=== PATIENT | female | born 1975 ===

== ENCOUNTER → 2023-10-08 07:47 | Outpatient (BNVA) | payer BC, SELFPAY | PROVIDERS: PCP Internal Medicine; Visit Provider Physician Assistant Surgical ==

== ENCOUNTER 2023-10-30 09:05 | Outpatient (AMB) | payer BC, SELFPAY ==
--- NOTE | 2023-10-30 16:23 | A.OFFVIS_ITS ---
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 BMI 43.2 HPI Details Start time: 1.52pm, End time: 2.52pm ?I spent 50 minutes speaking with the patient on the phone plus an additional 10 minutes reviewing and updating records for a total of 60 minutes HPI Comments History of Present Illness Details Previous weight loss efforts: Saxenda: 15lbs Wakes up: 6am, Sleeps: 8pm Breakfast: 9am (scrambled eggs, donut) Lunch: 12pm (sandwich) Dinner: 6pm (chicken, rice, beans, pasta) Snacks: none Exercise: Gym membership Fluids: Coffee (1cup/day with cream), tea: no, soda: regular Coke, juice: crystal light, ETOH: none PFSH Medical History (Updated 10/30/23 @ 16:24 by Elio Llamas MD) DJD (degenerative joint disease) Anxiety Depression Hypertension Morbid obesity Surgical History (Updated 10/08/23 @ 08:23 by Miryam Gomez CMA) Hx of colonoscopy Hx of wisdom tooth extraction Family History (Updated 10/08/23 @ 08:27 by Miryam Gomez CMA) Mother Hypertension Thyroid condition Father Acute leukemia Hypertension Diabetes Heart valve problem MDS (myelodysplastic syndrome) Son Depression Anxiety Social History (Updated 10/08/23 @ 08:23 by Miryam Gomez CMA) Alcohol intake: never Patient Tobacco Use Status: Never used Tobacco Assessment & Plan Assessment & Plan (1) Morbid obesity: Code(s): E66.01 - Morbid (severe) obesity due to excess calories Plan: 1.? Plan for lap sleeve gastrectomy. If diaphragmatic or ventral hernias are present at time of surgery, these will be repaired laparoscopically as well. Risks and complications were discussed in detail including possible conversion to an open procedure, anastomotic leak, bleeding requiring transfusion, small bowel obstruction, , DVT and pulmonary embolism, cardiac, or pulmonary complications, as intermodal dispatcher complications such as anastomotic ulcer, insufficient weight loss and vitamin deficiencies. I emphasized the importance of close follow-up, adherence to instructions and good communication. 2. Nutritional counseling. Start with one Isopure INFUSIONS protein (buy at [employer]) shakes (HALF scoop in 8oz water) at 7am-9am, 2 protein bar (Zone Perfect protein bars, buy at [employer]) at 10am-12pm and 1pm-3pm, dinner at 5pm (8 forks of protein and 8 forks of salad/vegetables) and one more Isopure IN[employer]USIONS protein shake (HALF scoop in 8oz water) after dinner at 6pm-8pm. So you do 2 protein shakes, 2 protein bars and one meal per day. Meal to include lean meat (beef, fish, pork, turkey, chicken), or persian yogurt, or egg whites, or beans with a salad with olive oil and fruits (berries, pears, apples, kiwi). Avoid salt, breads, potatoes, rice, pasta, desserts. 3. Each shake would be drunk slowly, like coffee in a period of 2 hours. 4. Cut each bar in 4 pieces and eat each piece in 30min ?to make each bar last 2 hours. 5. I emphasized the importance of measuring accurately the food portion and measure it when serving the food in plate 6. The meal portions include 8 full-size forks of meat and 8 full-size forks of salad. You always eat the meat portion but you can replace up to 4 forks for salad/vegetables with rice, potatoes or pasta, or a fruit ?if you like. The less you do it the better weight loss will be. 7. One full-size fork is what it can be scooped on the fork without falling aside and not what can be bit with the fork. Use regular forks like those you find in a typical restaurant. 8.? Please send me weight measurements as soon as possible and then once a week. Always include your diet and exercise plan. 9. Start treadmill with an incline of 2.0 and speed of 3.0. Increase incline by 1 every 3 min to a max incline of 8.0, stay 3min at 8.0 and then return to 2.0 and repeat same steps until calorie goal is met. Goal is to burn 2000 calories per week on exercise, which means either 300 calories daily, or 400 calories 5 days per week, or 500 calories 4 days per week, or 650 calories 3 days per week. Start also weight exercises with 20-30lbs for chest/shoulders/abdomen and 40- 50lbs for thighs doing 2 sets of 15 repetitions each. 10. The best choice would be to purchase a stationary bike, elliptical or treadmill at home that can track calories. Let me know if you do so I can give you an exercise plan. 11.?It is important of avoiding and for at least 18 months postoperatively and has been discussed at the infosession. 12. Goal is to lose at least 1.5-2lbs per week 13. Goal to lose 10% of your weight before surgery, which is about 24lbs. Ultimate weight goal: 220lbs before surgery 14. Please follow the diet plan exactly without any change. If you don't like something about the plan or you feel hungry you need to communicate with me so I can help you revise the plan. You should not change the plan yourself. Orders: Orders Hemoglobin A1c Today E66.01 - Morbid (severe) obesity due to excess calories, I10 - Essential (primary) hypertension H Pylori Breath Test Today E66.01 - Morbid (severe) obesity due to excess calories, I10 - Essential (primary) hypertension Lipid Panel Today E66.01 - Morbid (severe) obesity due to excess calories, I10 - Essential (primary) hypertension IRON PROFILE Today E66.01 - Morbid (severe) obesity due to excess calories, I10 - Essential (primary) hypertension Vitamin B12 and Folate Today E66.01 - Morbid (severe) obesity due to excess calories, I10 - Essential (primary) hypertension Zinc Today E66.01 - Morbid (severe) obesity due to excess calories, I10 - Essential (primary) hypertension C Reactive Protein Today E66.01 - Morbid (severe) obesity due to excess calories, I10 - Essential (primary) hypertension Vitamin A Today E66.01 - Morbid (severe) obesity due to excess calories, I10 - Essential (primary) hypertension TSH reflex Free T4 Today E66.01 - Morbid (severe) obesity due to excess calories, I10 - Essential (primary) hypertension XR chest 2V Today E66.01 - Morbid (severe) obesity due to excess calories, I10 - Essential (primary) hypertension Insulin Today E66.01 - Morbid (severe) obesity due to excess calories, I10 - Essential (primary) hypertension Complete Blood Count Auto Diff Today E66.01 - Morbid (severe) obesity due to excess calories, I10 - Essential (primary) hypertension Comprehensive Met. Panel Today E66.01 - Morbid (severe) obesity due to excess calories, I10 - Essential (primary) hypertension Vitamin B1 Today E66.01 - Morbid (severe) obesity due to excess calories, I10 - Essential (primary) hypertension Ferritin Today E66.01 - Morbid (severe) obesity due to excess calories, I10 - Essential (primary) hypertension Vitamin D 25-OH Total Today E66.01 - Morbid (severe) obesity due to excess calories, I10 - Essential (primary) hypertension US abdomen comp w elastography Today E66.01 - Morbid (severe) obesity due to excess calories, I10 - Essential (primary) hypertension ECG 12 lead EKG Today E66.01 - Morbid (severe) obesity due to excess calories, I10 - Essential (primary) hypertension FL upper GI w air Today E66.01 - Morbid (severe) obesity due to excess calories, I10 - Essential (primary) hypertension Referrals Behavioral Health Referral E66.01 - Morbid (severe) obesity due to excess calories, I10 - Essential (primary) hypertension Nutrition/Dietitian Referral E66.01 - Morbid (severe) obesity due to excess calories, I10 - Essential (primary) hypertension Telehealth Telehealth Location of provider rendering services: practice address Location of patient: address on file Patient Identification confirmed using: Name, : Yes Telehealth method: voice only Patient verbally consented to treatment: Yes Patient verbally consented to billing insurance company: Yes Patient informed of any privacy concerns related to visit: Yes Minutes spent on Phone/Video with Pt.: 60 Coding Level of Care Code Tele New Pt Level 5 (87238) Diagnoses Morbid obesity E66. Time Spent (min) 60
[2023-10-30 16:25] VITALS: BMI 43.2
== END 2023-10-30 16:45 | disposition home or self-care (01) ==
LOC: HO.HBS 09:06
PROVIDERS: PCP Internal Medicine; Visit Provider Surgery
DX: E66.01 Morbid (severe) obesity due to excess calories (principal); Z68.41 Body mass index [BMI] 40.0-44.9, adult
CPT/HCPCS: 99443

== ENCOUNTER → 2023-10-30 09:05 | Outpatient (BNVA) | payer BC, SELFPAY | PROVIDERS: PCP Internal Medicine; Visit Provider Surgery ==

== ENCOUNTER 2023-11-06 08:35 | Outpatient (REF) | payer BC, SELFPAY ==
[2023-11-06 08:53] LABS: MANUAL DIFF FLAG NO
[2023-11-06 09:07] LABS: Basophils Percent Auto 0.5 % (0-2); Eosinophils Absolute Auto 0.2 X10*3/uL (0.0-0.4); Eosinophils Percent Auto 3.2 % (0-4); Hematocrit 42.3 % (37.0-47.0); Hemoglobin 14.2 g/dl (12.0-16.0); Imm Gran Abs Auto 0.02 X10*3/uL (0.00-0.03); Imm Gran Pct Auto 0.3 % (0.0-0.4); Lymphocytes Percent Auto 26.9 % (20-40); Mean Corpuscular HGB Conc 33.6 g/dl (31.0-35.0); Mean Corpuscular Hemoglobin 28.3 pg (27.0-33.0); Mean Corpuscular Volume 84.3 fL (80.0-98.0); Mean Platelet Volume 9.2 fL (9.4-12.3); Monocytes Absolute Auto 0.5 X10*3/uL (0.1-1.2); Monocytes Percent Auto 6.7 % (2-11); Neutrophils Absolute Auto 4.7 x10*3/uL (2.0-8.3); Neutrophils Percent Auto 62.4 % (45-73); Platelet Count 464 X10*3/uL (160-400); Red Blood Count 5.02 X10*6/uL (4.20-5.50); Red Cell Distribution Width 13.2 % (11.0-16.0); White Blood Count 7.5 X10*3/uL (4.8-10.8)
[2023-11-06 09:14] LABS: Estimated Average Glucose 105 mg/dL; Hemoglobin A1C 126.3337 umol/L; Hemoglobin A1c % 5.3 % (<6.0)
[2023-11-06 09:44] LABS: Alanine Aminotransferase 14 U/L (0-31); Albumin Level 4.1 g/dL (3.5-5.0); Alkaline Phosphatase 62 U/L (39-117); Anion Gap 11 (12-20); Aspartate Amino Transferase 15 U/L (5-31); Bilirubin Total 0.6 mg/dL (0.0-1.0); Blood Urea Nitrogen 12 mg/dL (9-16); C Reactive Protein 1.17 mg/dL (< or = 0.50); Calcium 9.8 mg/dL (8.4-10.2); Carbon Dioxide 30 mmol/L (22-29); Chloride 102 mmol/L (96-108); Cholesterol 210 mg/dL (<200); Estimated Glomerular Filt Rate > 60; Glucose Random 100 mg/dL (60-115); HDL Cholesterol 61 mg/dL (>40); Iron 87 mcg/dL (30-160); LDL Cholesterol Calculated 126 mg/dL (<100); Percent Iron Saturation 26 % (15-50); Potassium 4.2 mmol/L (3.3-5.1); Sodium 139 mmol/L (135-145); Total Iron Binding Capacity 330 mcg/dL (228-428); Total Protein 7.7 g/dL (6.5-8.0); Triglycerides 119 mg/dL (<150); Unsaturated Iron Binding 243 ug/dL
[2023-11-06 10:20] LABS: Ferritin 10 ng/mL (10-250); Insulin 12 uU/mL (2-29); Vitamin D 25-OH Total 24.6 ng/mL (>30)
[2023-11-06 10:37] LABS: Folate 11.1 ng/mL (> or = 4.0); Vitamin B12 541 pg/mL (200-900)
[2023-11-10 17:12] LABS: Zinc 75 mcg/dL (60-130)
[2023-11-12 06:28] LABS: Vitamin B1 11 nmol/L (8-30)
[2023-11-13 01:38] LABS: Vitamin A 38 mcg/dL (38-98)
== END 2023-11-06 08:36 | disposition home or self-care (01) ==
LOC: HO.LAB 08:35
PROVIDERS: PCP Physician Assistant Medical; Visit Provider Surgery
DX: E66.01 Morbid (severe) obesity due to excess calories (principal); I10 Essential (primary) hypertension
CPT/HCPCS: 36415; 80053; 80061; 82306; 82607; 82728; 82746; 83036; 83525; 83540; 84425; 84443; 84590; 84630; 85025; 86140; 97802

== ENCOUNTER 2023-11-06 13:50 | Outpatient (AMB) | payer BC, SELFPAY ==
--- NOTE | 2023-11-06 14:08 | A.OFFVIS_ITS ---
Intake Intake Visit Reasons: (OV) Initial Nutritional SWL Branch Operations Specialist Required: No Allergies Penicillins Allergy (Mild, Verified 10/30/23 16:26) HIVES apples Allergy (Severe, Uncoded 11/06/23 14:11) Anaphylaxis HPI Nutrition Presentation Reason for consult elevated BMI Diet Assmnt Details Pt shares she hasn't started her nutrition plan yet . She plans to purchase the products today, had to pay some bills beforehand. 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 she has struggled with her weight most of her life. recently tried saxenda but d/c due to minimal weight loss insurance stopped covering it. she attempted wegovy but wasn't able to obtain it. she knows someone who had LSG with [facility] and is doing great ./ We had a long discussion about being ready for bariatric surgery, answering some of her questions/concerns, and working through some mindset shifts . I am afraid to fail and has some concerns about how to be successful SWL classes: none yet Dietary counseling reduction Who buys your food self Who prepares/cooks your food self Meal frequency regular: breakfast (DD bagel), lunch and dinner Lifestyle Eating out 4 or more times/week (on the road a lot for work ) Food frequency Dairy: daily, Fruit: several times weekly, Vegetables: several times weekly, Grains/pasta/breads/cereal (carbs): daily, Meats/poultry/fish (protein): daily (no pork ), Meat substitutes/nuts/seeds/legumes: daily, Restaurants/fast foods: daily, Water: daily, Soda: daily (coke , switched to coke zero now ), Coffee: daily and Alcohol: never Diagnosis Nutrition problem #1 overweight/obesity As related to (etiology) #1 excess energy intake and physical inactivity As evidenced by (sign/symptom) #1 high BMI Monitoring/Goals Nutrition problem monitoring total energy intake, level of knowledge/skill, total PRO intake, total CHO intake and weight Outcome progress progressing Learning/Education Readiness to learn excellent Stages of change action Educational materials provided Yes Most Recent Diabetes Results: Cholesterol 210 mg/dL (<200) H 11/06/23 HDL Cholesterol 61 mg/dL (>40) 11/06/23 Triglycerides 119 mg/dL (<150) 11/06/23 Creatinine 0.74 mg/dL (0.5-1.4) 11/06/23 Blood Urea Nitrogen 12 mg/dL (9-16) 11/06/23 Sodium 139 mmol/L (135-145) 11/06/23 Potassium 4.2 mmol/L (3.3-5.1) 11/06/23 Chloride 102 mmol/L (96-108) 11/06/23 Carbon Dioxide 30 mmol/L (22-29) H 11/06/23 Calcium 9.8 mg/dL (8.4-10.2) 11/06/23 AST 15 U/L (5-31) 11/06/23 ALT 14 U/L (0-31) 11/06/23 Total Protein 7.7 g/dL (6.5-8.0) 11/06/23 Albumin 4.1 g/dL (3.5-5.0) 11/06/23 [facility] Medical History (Updated 10/30/23 @ 16:24 by Elio Llamas MD) DJD (degenerative joint disease) Anxiety Depression Hypertension Morbid obesity Surgical History (Updated 10/08/23 @ 08:23 by Miryam Gomez CMA) Hx of colonoscopy Hx of wisdom tooth extraction Family History (Updated 10/08/23 @ 08:27 by Miryam Gomez CMA) Mother Hypertension Thyroid condition Father Acute leukemia Hypertension Diabetes Heart valve problem MDS (myelodysplastic syndrome) Son Depression Anxiety Social History (Updated 10/08/23 @ 08:23 by Miryam Gomez CMA) Alcohol intake: never Patient Tobacco Use Status: Never used Tobacco Assessment & Plan Assessment & Plan (1) Morbid obesity: Code(s): E66.01 - Morbid (severe) obesity due to excess calories Plan Not cleared. Will need another nutrition appointment when classes are completed and she is closer to bariatric surgery Coding Level of Care Code Nutr Indiv Intake (07975) Diagnoses Morbid obesity E66.01 Time Spent (min) 60
== END 2023-11-06 14:59 | disposition home or self-care (01) ==
PROVIDERS: PCP Physician Assistant Medical; Visit Provider Dietitian, Registered
DX: E66.01 Morbid (severe) obesity due to excess calories (principal)

== ENCOUNTER 2023-11-15 08:31 | Outpatient (REF) | payer BC, SELFPAY ==
--- NOTE | ~2023-11-15 | US_ITS ---
EXAMINATION: US COMPLETE ABDOMEN WITH LIVER ELASTOGRAPHY CLINICAL INFORMATION: Obesity. COMPARISON: None available. TECHNIQUE: Real-time imaging of the abdominal viscera. Noninvasive ultrasound liver fibrosis assessment is performed using Kyara ElastPQ point quantification shear wave elastography (2D-SWE) with a C5-2 MHz transducer. Multiple elastography samples are obtained. FINDINGS: PANCREAS: Normal. The visualized pancreatic head and body are normal in appearance. The remainder of the pancreas is obscured from visualization by the overlying bowel gas. ABDOMINAL AORTA: The proximal, middle, and distal aortic segments are normal in caliber. INFERIOR VENA CAVA: Visualized portions are normal. LIVER: The liver demonstrates normal size, contour and increased echogenicity. No focal lesion or intrahepatic biliary duct dilatation. The right lobe measures 15.6 cm in length. The left lobe measures 11.0 cm in length. Portal flow is towards the liver (hepatopetal). Shear wave liver elastography median stiffness is 1.3 m/s (reference: normal median stiffness is 1.3 m/s or less). IQR/median stiffness to assess sampling precision is 0.31 (reference: good quality data set is IQR/median stiffness of 0.15 or less). GALLBLADDER: Normal. The gallbladder is physiologically distended without evidence of stones, sludge, polyps, wall thickening or pericholecystic fluid. COMMON BILE DUCT: Normal in caliber measuring 0.3 cm in diameter. RIGHT KIDNEY: Normal. No hydronephrosis. No renal calculi or focal parenchymal lesions. The kidney measures 12.3 cm in maximum dimension. LEFT KIDNEY: Normal. No hydronephrosis. No renal calculi or focal parenchymal lesions. The kidney measures 12.1 cm in maximum dimension. SPLEEN: Normal. The spleen measures 10.9 cm in maximum dimension. FREE FLUID: None. US/US abdomen comp w elastography IMPRESSION: 1. There is generalized increase in hepatic echotexture, consistent with fatty infiltration or hepatocellular disease. Please correlate clinically. No focal hepatic mass or intrahepatic biliary dilatation is seen. 2. Liver elastography: Although measurements suggest a high probability of normal liver stiffness, there is statistical variability of the sampling which decreases accuracy. REFERENCE: Society of Radiologists in Ultrasound Liver Stiffness Thresholds (2020): LIVER STIFFNESS THRESHOLDS: *Liver Stiffness equal or less than 1.3 m/s: High probability of being normal. *Liver Stiffness less than 1.7 m/s: In the absence of other known clinical signs, rules out compensated advanced chronic liver disease. *Liver Stiffness 1.7-2.1 m/s: Suggestive of compensated advanced chronic liver disease but need further test for confirmation. *Liver Stiffness over 2.1 m/s: Rules in compensated advanced chronic liver disease. *Liver Stiffness over 2.4 m/s: Suggestive of clinically significant portal hypertension. QUALITY OF DATA SET: *IQR/Median value equal or less than 0.15 implies a quality data set. *IQR/Median value over 0.15 implies a poor quality data set. SIGNIFICANT CHANGE FROM PRIOR EXAM: Significant change if liver stiffness measurement is 10% or greater from prior exam. OTHER CONSIDERATIONS: The stage of liver fibrosis may be overestimated in the setting of acute hepatitis, liver inflammation, elevated liver function tests, hepatic vascular congestion, obstructive cholestasis, non-fasting state, and infiltrative diseases such as amyloidosis and lymphoma. In some patients with NAFLD, the liver stiffness thresholds for compensated advanced chronic liver disease may be lower. In causes other than viral hepatitis and NAFLD, liver stiffness thresholds are not well established.
== END 2023-11-15 08:32 | disposition home or self-care (01) ==
LOC: HO.US 08:31
PROVIDERS: PCP Physician Assistant Medical; Visit Provider Surgery
DX: E66.01 Morbid (severe) obesity due to excess calories (principal); I10 Essential (primary) hypertension
CPT/HCPCS: 76700; 76981

== ENCOUNTER 2023-11-20 14:27 | Outpatient (AMB) | payer BC, SELFPAY ==
--- NOTE | 2023-11-20 14:19 | A.OFFWM_ITS ---
Intake Intake Visit Reasons: (TV) BH Intake Allergies Penicillins Allergy (Mild, Verified 10/30/23 16:26) HIVES apples Allergy (Severe, Uncoded 11/06/23 14:11) Anaphylaxis PFSH Medical History (Updated 11/09/23 @ 18:11 by Elio Llamas MD) DJD (degenerative joint disease) Anxiety Depression Hypertension Morbid obesity Surgical History (Updated 10/08/23 @ 08:23 by Miryam Gomez CMA) Hx of colonoscopy Hx of wisdom tooth extraction Family History (Updated 10/08/23 @ 08:27 by Miryam Gomez CMA) Mother Hypertension Thyroid condition Father Acute leukemia Hypertension Diabetes Heart valve problem MDS (myelodysplastic syndrome) Son Depression Anxiety Social History (Updated 10/08/23 @ 08:23 by Miryam Gomez CMA) Alcohol intake: never Patient Tobacco Use Status: Never used Tobacco Behavioral Health Assessment Weight Management Therapy Therapy Notes Details Patient is looking to have weight loss surgery to help improve her health and quality of life. She has been on medication for depression and anxiety for about ten years, the year after her mother she went into a very dark place . She last saw therapist Olamide Clark in the fall of 2022. Patient denied any other mental health treatment or history of drug or alcohol abuse. Presenting Concerns Referral Source provider Reason for referral weight loss surgery evaluation Precipitating Event obesity Living Situation At risk of losing current housing? No Satisfied with current living situation? Yes Comments Patient lives with her 23 year old son and her boyfriend of 7 years. Also 4 pets in the home. Food/Weight/Diet Expectations of change weight loss and maintenance History/Relationship with food Has always looked at food as a nutrition thing . then stated that she then would eat to forget about the pain. (in regards to her mother and her stroke, having to be her caregiver). Then stated that she does not eat much, loves vegetables and chicken, a little bit of rice, also loves sweets History/Relationship with weight She reported struggling with her weight since she had her son 23 years ago. History/Relationship with dieting Matilde 4 months and lost 11lbs. Binge Eating Do you frequently eat large amounts of food in short periods of time, not feeling physically hungry? No Do you feel out of control when you eat a large amount of food in a short period of time? No Do you eat large amounts of food rapidly and typically alone? Yes Night Eating Do you wake up at least once during the night to eat? No If you wake up in the night, do you find that it is necessary to eat something in order to fall back asleep? No Do you have little or no appetite in the morning and feel very hungry in the evening, often overeating between dinner and when you go to bed? No Social History Family history and relationship Patient has one adult son. Also has two older brothers and she is the youngest. She was born in [facility] and lived here since she was 6 years old and raised by her parents. Parental/Familial hose mender obligations none Developmental history and status no issues reported Social support boyfriend, son Episcopal/Spirituality Confucianism Cultural/Ethnic information Legal Involvement and History Current or historical involvement with the legal system? none reported Education Highest grade completed masters in social work Preferred learning style Auditory, Verbal, Written, Learn by doing and Visual Currently enrolled in educational program? No Interested in further educational program? 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 No Meaningful activities gardening, traveling Financial Situation Describe current financial situation Occasional struggle Financial assistance? None Service Service? No Mental Health and Addiction Treatment Current/Past substance abuse? No Current/Past addictive behavior concerns? No Medical and Physical Health Summary Physical exam in the last year? Yes Pain Screening Current pain? No Pain in the last few months? No Medications Is the patient compliant with medications? Yes Does the patient have Agudelo Guardian in place? Not applicable Does the patient use complimentary health approaches? No Trauma/Abuse History History of trauma? Yes Assessment & Plan Assessment & Plan (1) Depression: Code(s): F32.A - Depression, unspecified (2) Anxiety: Code(s): F41.9 - Anxiety disorder, unspecified (3) Morbid obesity: Code(s): E66.01 - Morbid (severe) obesity due to excess calories Plan Patient reported depression and anxiety however responded none at all to all PHQ9 questions. She reported that she often puts on a brave face and acts like everything is okay. She was encourgaed to reach out to her therapist to reconnect. Patient reported that although this program is hard, she is doing well. Patient is cleared for surgery when ready. Coding Level of Care Code Tele Psy Diag Eval (51108) Diagnoses Depression F32.A Anxiety F41.9 Morbid obesity E66.01 Time Spent (min) 45
== END 2023-11-20 14:54 | disposition home or self-care (01) ==
LOC: HO.HBST 14:27
PROVIDERS: PCP Physician Assistant Medical; Visit Provider Counselor Mental Health
DX: F32.A Depression, unspecified (principal); F41.9 Anxiety disorder, unspecified; E66.01 Morbid (severe) obesity due to excess calories
CPT/HCPCS: 90791

== ENCOUNTER → 2023-11-20 14:27 | Outpatient (BNVA) | payer BC, SELFPAY | PROVIDERS: PCP Physician Assistant Medical; Visit Provider Counselor Mental Health ==

== ENCOUNTER → 2023-11-25 07:13 | Outpatient (REF) | payer BC, SELFPAY ==
--- NOTE | 2023-11-25 07:24 | ECG_ITS ---
Test Reason : obesity Blood Pressure : / mmHG Vent. Rate : 049 BPM Atrial Rate : 049 BPM P-R Int : 160 ms QRS Dur : 094 ms QT Int : 454 ms P-R-T Axes : 032 -20 019 degrees QTc Int : 410 ms Sinus bradycardia Minimal voltage criteria for LVH, may be normal variant ( Enterprise product ) Borderline ECG No previous ECGs available Referred By: Elio Llamas Electronically Signed By:Osorio Mcconnell
== END ==
LOC: HO.CARD 07:13
PROVIDERS: PCP Physician Assistant Medical; Visit Provider Surgery
DX: I10 Essential (primary) hypertension (principal); E66.01 Morbid (severe) obesity due to excess calories
CPT/HCPCS: 93005

== ENCOUNTER → 2023-11-25 07:24 | Outpatient (BNV) | payer BC, SELFPAY | PROVIDERS: PCP Physician Assistant Medical; Visit Provider Internal Medicine Cardiovascular Disease | DX: R00.1 Bradycardia, unspecified (principal) | CPT/HCPCS: 93010 ==

== ENCOUNTER 2023-11-27 07:39 | Day surgery (SDC) | payer BC, SELFPAY ==
[2023-11-25 10:49] VITALS: BMI 43.2
--- NOTE | 2023-11-26 10:41 | P.CONAN_ITS ---
Documented by User: Selin Perez NP 11/26/23 10:41 HPI - Anesthesia Eval Consult details Narrative: 48yo F for Upper Endoscopy PMFSH Active Problems Active Problems: All Active Problems Vitamin D deficiency (Acute) DJD (degenerative joint disease) (Acute) Anxiety (Acute) Depression (Acute) Hypertension (Acute) Morbid obesity (Acute) Past Medical History Medical History (Updated 11/09/23 @ 18:11 by Elio Llamas MD) DJD (degenerative joint disease) Anxiety Depression Hypertension Morbid obesity Family History Family History (Updated 10/08/23 @ 08:27 by Miryam Gomez CMA) Mother Hypertension Thyroid condition Father Acute leukemia Hypertension Diabetes Heart valve problem MDS (myelodysplastic syndrome) Son Depression Anxiety Surgical History Surgical History (Updated 10/08/23 @ 08:23 by Miryam Gomez CMA) Hx of colonoscopy Hx of wisdom tooth extraction Social History Social History (Updated 10/08/23 @ 08:23 by Miryam Gomez CMA) Alcohol intake: never Patient Tobacco Use Status: Never used Tobacco Meds Allergies Allergy/AdvReac Type Severity Reaction Status Date / Time Penicillins Allergy Mild HIVES Verified 11/27/23 08:16 apples Allergy Severe Anaphylaxis Uncoded 11/27/23 08:16 Home Medications ?Medication ?Instructions ?Recorded ?Confirmed ?Last Taken ?Type amlodipine 5 mg tablet 5 mg PO DAILY 10/08/23 11/27/23 11/27/23 History buspirone 5 mg tablet 5 mg PO BID 10/08/23 11/27/23 11/27/23 History metoprolol tartrate 50 mg tablet 50 mg PO BID 10/08/23 11/27/23 11/27/23 History sertraline 100 mg tablet 100 mg PO DAILY 10/08/23 11/27/23 11/27/23 History Exam Height,Weight and Vital Signs: Height 5 ft 3 in Weight 110.733 kg Assessment and Plan Assessment Anesthesia Assessment: Chart Reviewed Documented by User: Kylie Hector MD 11/27/23 08:20 [facility] Past Medical History Medical History (Updated 11/09/23 @ 18:11 by Elio Llamas MD) DJD (degenerative joint disease) Anxiety Depression Hypertension Morbid obesity Family History Family History (Updated 10/08/23 @ 08:27 by Miryam Gomez CMA) Mother Hypertension Thyroid condition Father Acute leukemia Hypertension Diabetes Heart valve problem MDS (myelodysplastic syndrome) Son Depression Anxiety Family history of problems with anesthesia: No Surgical History Surgical History (Updated 10/08/23 @ 08:23 by Miryam Gomez CMA) Hx of colonoscopy Hx of wisdom tooth extraction History of Problems with Anesthesia: No Social History Social History (Updated 10/08/23 @ 08:23 by Miryam Gomez CMA) Alcohol intake: never Patient Tobacco Use Status: Never used Tobacco Meds Allergies Allergy/AdvReac Type Severity Reaction Status Date / Time Penicillins Allergy Mild HIVES Verified 11/27/23 08:16 apples Allergy Severe Anaphylaxis Uncoded 11/27/23 08:16 Home Medications ?Medication ?Instructions ?Recorded ?Confirmed ?Last Taken ?Type amlodipine 5 mg tablet 5 mg PO DAILY 10/08/23 11/27/23 11/27/23 History buspirone 5 mg tablet 5 mg PO BID 10/08/23 11/27/23 11/27/23 History metoprolol tartrate 50 mg tablet 50 mg PO BID 10/08/23 11/27/23 11/27/23 History sertraline 100 mg tablet 100 mg PO DAILY 10/08/23 11/27/23 11/27/23 History Exam Airway Mallampati Class: III (thick neck) TM Dist: >3cm Neck ROM: Full Heart: rrr Lungs: cta Assessment and Plan Assessment Anesthesia Assessment: Anesthesia Plan Discussed Final Anesthetic Review Family History of Problems with Anesthesia: No History of Problems with Anesthesia: No NPO: Yes ASA Class: III Final Preanesthetic Review: No Changes in Pt Med Stat, Meds/Allgs Chart Reviewed and Consent Obtained/Reviewed Patient Risk: Intermediate Procedure Risk: Intermediate Anesthetic Plan Anesthetic Plan: MAC: Disposition: Standard PACU
[2023-11-27 08:14] VITALS: BMI 42.4
[2023-11-27 08:31] VITALS: BP 145/88; PULSE 50; RESP 16; TEMP 36; O2SAT 93
[2023-11-27 08:31] LABS: UPreg QC Valid YES; Urine Pregnancy NEGATIVE (NEGATIVE)
[2023-11-27] MEDS: Lactated Ringers 1,000 ML 80 ML IVCONT (08:34)
[2023-11-27 09:17] VITALS: BP 127/59; PULSE 64; RESP 16; TEMP 36.6; O2SAT 97
--- NOTE | 2023-11-27 09:25 | PM.OP ---
Brief Operative Note Date of Service: 11/27/23 Pre-op diagnosis: Morbid obesity Post-op diagnosis: same Procedure: PROCEDURE DATE: 11/27/2023 PREOPERATIVE DIAGNOSIS: Morbid obesity POSTOPERATIVE DIAGNOSIS: ?Same as above. 1) small hiatal hernia, 2) esophagitis PROCEDURE: [id number] with biopsies Surgeon: ?Tobin Llamas M.D.. Ph.D. Medical Genetics Director: None ? Anesthesia: IV sedation Estimated blood loss: ?Minimal FINDINGS AND PROCEDURE: ? OPERATIVE INDICATIONS: ?The patient is a 48 year old female known to me who is interested in bariatric surgery. Based on this information I recommended an upper endoscopy to evaluate for H pylori and the stomach's anatomy. Risks and complications of the surgery were discussed with the patient in advance particularly the possibility of perforation or bleeding that may require surgical intervention. The patient understood the risks and was in agreement with the plan. ? PROCEDURE: After informed consent was obtained by the patient, the patient was ?transferred to the Operating Room and was placed in the supine position.? After successful induction of IV sedation, a mouth block was inserted and the patient was placed in the left lateral decubitus position. An upper endoscopy was performed next, the oropharynx and esophagus appeared within the normal limits. There was a small 2-3cm hiatal hernia. The z-line was irregular with tongues of gastric mucosa protruding into the esophagus in 50% circumference. Two biopsies were obtained from the distal esophagus 2-3 cm proximal to the GE junction and two additional biopsies from the GE junction. The stomach was entered and it appeared to be of normal size. There was no gastritis. There was no stricture or ulcer. A biopsy was obtained from the gastric fundus and antrum. Retroflexion of the scope confirmed the presence of diaphragmatic hernia. No significant bleeding was noted from any of the biopsy sites. The scope was then advanced into the duodenum which appeared to be normal as well. At that point the duodenum ?and the stomach were decompressed and the scope was withdrawn from the patient's mouth. The patient extubated and was transferred in stable condition to the Recovery Room for further care. I was present and performed all steps of the procedure. There were no residents to assist with this case. Tobin Llamas M.D., Ph.D. Surgeon: Elio Llamas MD Anesthesia: MAC Was an Medical Genetics Director used for this Procedure?: No Estimated blood loss (mL): 0 IV fluids (mL): 400 Urine output (mL): 0 (No Elizalde to record output) Pathology: other (1) antrum x1, 2) fundus x1, 3) GE junction x2, 4) distal esophagus x2)
[2023-11-27 09:32] VITALS: BP 136/75; PULSE 54; RESP 18; TEMP 36.5; O2SAT 95
== END 2023-11-27 10:08 | disposition home or self-care (01) ==
PROVIDERS: Nurse Practitioner; PCP Physician Assistant Medical; Visit Provider Surgery
PROC: 0DJ08ZZ Inspection of Upper Intestinal Tract, Via Natural or Artificial Opening Endoscopic (ICD-10-PCS; CPT 43235; principal; 2023-11-27 10:30)
DX: E66.01 Morbid (severe) obesity due to excess calories (principal); Z68.41 Body mass index [BMI] 40.0-44.9, adult; K20.80 Other esophagitis without bleeding; K44.9 Diaphragmatic hernia without obstruction or gangrene; I10 Essential (primary) hypertension; F32.A Depression, unspecified; M19.90 Unspecified osteoarthritis, unspecified site; F41.9 Anxiety disorder, unspecified; Z79.899 Other long term (current) drug therapy; Z88.0 Allergy status to penicillin
CPT/HCPCS: 43239; 81025; 88305; 88313; 88342; J2704

== ENCOUNTER → 2023-11-27 07:39 | Outpatient (BNV) | payer BC, SELFPAY | PROVIDERS: PCP Physician Assistant Medical; Visit Provider Surgery | DX: K44.9 Diaphragmatic hernia without obstruction or gangrene (principal) | CPT/HCPCS: 43239 ==

== ENCOUNTER 2023-11-29 08:11 | Outpatient (AMB) | payer BC, SELFPAY ==
--- NOTE | 2023-11-29 08:41 | MHC.OFFVISWM ---
Intake VS Expanded 11/29/23 08:47 Height 5 ft 3 in Weight 239 lb 8 oz BMI 42.4 Body Fat % 51.3 Body Fat Mass 123 Fat Free Mass 116.7 Visceral Fat Rating 15 Body Water % 35 Body Water Mass 83.9 Basal Metabolic Rate/Score 1,613 Intake Visit Reasons: TV Follow Up SWL - 1ST Allergies Penicillins Allergy (Mild, Verified 11/27/23 08:16) HIVES apples Allergy (Severe, Uncoded 11/27/23 08:16) Anaphylaxis HPI TV Follow Up SWL - 1ST HPI Details Start time: 8.31am, End time: 8.51am ?I spent 15 minutes speaking with the patient on the phone plus an additional 5 minutes reviewing and updating records for a total of 20 minutes HPI Comments History of Present Illness Details Overall weight loss: 4.4lbs, or 1.8% TBWL Is doing the 2 Celebrate Rebuild protein shakes (1 scoop each in 8oz almond milk), 2 Celebrate protein bars and one meal (8 forks of protein and 8 forks of salad or vegetables) Exercise: walking pad PFSH Medical History DJD (degenerative joint disease) Anxiety Depression Hypertension Morbid obesity Surgical History Hx of colonoscopy Hx of wisdom tooth extraction Family History (Updated 10/08/23 @ 08:27 by Miryam Gomez CMA) Mother Hypertension Thyroid condition Father Acute leukemia Hypertension Diabetes Heart valve problem MDS (myelodysplastic syndrome) Son Depression Anxiety Social History (Updated 10/08/23 @ 08:23 by Miryam Gomez CMA) Alcohol intake: never Patient Tobacco Use Status: Never used Tobacco Assessment & Plan Assessment & Plan (1) Morbid obesity: Code(s): E66.01 - Morbid (severe) obesity due to excess calories Plan: 1. Continue same nutritional plan of 2 Celebrate Rebuild protein shakes (1 scoop each in 8oz almond milk), 2 Celebrate protein bars and one meal (8 forks of protein and 8 forks of salad or vegetables) 2. Exercise: continue walking pad daily but track calories for a goal of 300 calories per day, daily. Goal is to burn 2000 calories per week 3. Let me know when you purchase a treadmill 4. Continue to send me weight measurements weekly on Mondays Telehealth Telehealth Location of provider rendering services: practice address Location of patient: address on file Patient Identification confirmed using: Name, : Yes Telehealth method: voice only Patient verbally consented to treatment: Yes Patient verbally consented to billing insurance company: Yes Patient informed of any privacy concerns related to visit: Yes Minutes spent on Phone/Video with Pt.: 20 Coding Level of Care Code Tele Est Pt Level 3 (51174) Diagnoses Morbid obesity E66.01 Time Spent (min) 20
[2023-11-29 08:47] VITALS: BMI 42.4
== END 2023-11-29 08:52 | disposition home or self-care (01) ==
LOC: HO.HBS 08:11
PROVIDERS: PCP Physician Assistant Medical; Visit Provider Surgery
DX: E66.01 Morbid (severe) obesity due to excess calories (principal); Z68.41 Body mass index [BMI] 40.0-44.9, adult
CPT/HCPCS: 99442

== ENCOUNTER → 2023-11-29 08:11 | Outpatient (BNVA) | payer BC, SELFPAY | PROVIDERS: PCP Physician Assistant Medical; Visit Provider Surgery ==

== ENCOUNTER 2023-12-30 08:43 | Outpatient (REF) | payer BC, SELFPAY ==
--- NOTE | ~2023-12-30 | FL_ITS ---
EXAMINATION: XR FLUOROSCOPY UPPER GI WITH AIR CLINICAL INFORMATION: Preop evaluation prior to bariatric surgery COMPARISON: None TECHNIQUE: Fluoroscopic air contrast upper GI examination was performed utilizing standard techniques with thin and thick barium and effervescent granules. Numerous spot images were obtained. FINDINGS: Dual and single contrast images of the esophagus demonstrate normal caliber, contour, and mucosal pattern. No evidence of mass or ulcerations are identified. Esophageal peristalsis is mildly disorganized. There is very mild narrowing of the GE junction. No evidence of hiatus hernia identified. No significant gastroesophageal reflux was seen during the course of the examination and on reflux views. Dual contrast and single contrast images of the stomach demonstrated normal contour and mucosal pattern without evidence of mass, ulceration, or other abnormality. Contrast freely passed into the gastric antrum and duodenal bulb without delay. Single and air-contrast images of the duodenal bulb demonstrate no abnormality. The duodenal sweep has a normal appearance, course, and mucosal fold appearance. No malrotation. The imaged proximal jejunum has a normal fold pattern and caliber. FLUOROSCOPY TIME: 3 minutes 22 seconds Number of Spot Images: 8 Number of Cine: 12 DOSE AREA PRODUCT: [id number] uGy-m2 (microgray-meter squared) FL/FL upper GI w air IMPRESSION: 1. Mildly disorganized esophageal peristalsis 2. A mild narrowing of the GE junction that may represent early achalasia. A mild short segment benign stricture cannot be ruled out. Recommend correlation with EGD. This procedure was performed by Mane Cameron PA-C, and supervised by Dr. Atwood
--- NOTE | ~2023-12-30 | XR_ITS ---
EXAMINATION: XR CHEST CLINICAL INFORMATION: Morbid obesity due to excess calories. COMPARISON: None available. TECHNIQUE: 2 views of the chest were obtained. FINDINGS: There is no gross pneumothorax. Heart size is normal. No pleural effusion. Mild degenerative changes in the thoracic spine. No new focal consolidation to suggest pneumonia. XR/XR chest 2V IMPRESSION: No evidence of pneumonia.
== END 2023-12-30 08:44 | disposition home or self-care (01) ==
LOC: HO.XRAY 08:43
PROVIDERS: PCP Physician Assistant Medical; Visit Provider Surgery
DX: E66.01 Morbid (severe) obesity due to excess calories (principal); I10 Essential (primary) hypertension
CPT/HCPCS: 71046; 74246

== ENCOUNTER → 2023-12-30 08:45 | Outpatient (BNV) | payer BC, SELFPAY | PROVIDERS: PCP Physician Assistant Medical; Visit Provider Physician Assistant Surgical | DX: E66.01 Morbid (severe) obesity due to excess calories (principal); Z01.818 Encounter for other preprocedural examination | CPT/HCPCS: 74246 ==